=== PATIENT | male | born 1970 ===

== ENCOUNTER 2021-07-26 12:17 | Inpatient (IN) ==
[2021-07-26 13:01] LABS: POC Blood Urea Nitrogen 16 mg/dL (6-20); POC CO2 21 mmol/L (22-30); POC Calcium, Ionized 1.24 mmEq/L (1.16-1.32); POC Chloride 107 mEq/L (96-108); POC Creatinine 1.3 mg/dL (0.6-1.2); POC Glucose, Random 258 mg/dL (70-105); POC Hematocrit 40 % (41-55); POC Potassium 4.2 mEql/L (3.3-5.1); POC Sodium 140 mEq/L (133-145)
[2021-07-26] MEDS ORDERED: METOPROLOL TARTRATE 5 MG/5 ML VIAL IV ONE ×2 (13:02→14:21)
--- NOTE | 2021-07-26 13:07 | Emergency Department Note ---
HPI General Chief complaint: Chest Pain Stated complaint: Chest Pain Time Seen by Provider: 07/26/21 12:42 Source: patient Mode of arrival: ambulatory History of Present Illness HPI Narrative: Patient is a 51-year-old gentleman who arrives emergency department by private vehicle accompanied by his and grandson complaining of shortness of breath. The patient says he has been feeling fatigued and short of breath past week or so. This was gradual in onset has been progressively worsening. He finds that he gets short of breath whenever he lies flat. He denies any associated chest pain vomiting or diaphoresis. Today, his checked his EKG with a home cardiac monitor technician and found his heart rate to be in the 150s so he decided to come to the emergency department for further evaluation. Nothing seems to make his symptoms any better. He has never had anything like this before. He denies any significant recent weight gain or lower extremity edema. Related Data Home Medications Medication Instructions Recorded Confirmed allopurinol 100 mg tablet 100 mg PO QDAY 07/26/21 07/26/21 atorvastatin 40 mg tablet 40 mg PO QDAY 07/26/21 07/26/21 lisinopril 40 mg tablet 40 mg PO QDAY 07/26/21 07/26/21 metformin 1,000 mg tablet 1,000 mg PO BID 07/26/21 07/26/21 Previous Rx's Medication Instructions Recorded apixaban 5 mg tablet (Eliquis) 5 mg PO BID #60 tab 07/28/21 digoxin 125 mcg (0.125 mg) tablet 125 mcg PO QDAY #30 tab 07/28/21 metoprolol tartrate 25 mg tablet 50 mg PO BID #120 tab 07/28/21 furosemide 40 mg tablet (Lasix) 40 mg PO QAM #30 tab 07/29/21 Allergies Allergy/AdvReac Type Severity Reaction Status Date / Time No Known Drug Allergies Allergy Verified 07/26/21 20:02 Review of Systems ROS ROS Narrative: Narrative: All systems ED: reviewed and negative except as stated. Constitutional: Denies fever or chills Cardiovascular: Denies chest pain Respiratory: Reports cough Gastrointestinal: Denies abdominal pain, nausea, vomiting or diarrhea PFSH Narrative Patient History Narrative: Narrative: Medical/Surgical/Family History All Active Problems (Updated 08/01/21 @ 07:39 by Glynn Yan DO) Congestive cardiac failure (Acute) Type 2 diabetes mellitus (Acute) Hypertension (Acute) Social History Smoking Status: Never smoker Alcohol Intake Frequency: 0-2 drinks per day Substance Use: does not use Exam Narrative Narrative: I reviewed the vital signs. Gen -patient is awake and alert and in no acute distress. The patient is well groomed. HEENT -head is atraumatic. There is no conjunctival pallor or scleral icterus. Mucous membranes are moist. CV -S1-S2 tachycardic and irregularly irregular. Peripheral pulses are palpable. There is no JVD. Resp -breathing is nonlabored. Lungs are clear to auscultation bilaterally. There is no cyanosis. GI - Abdomen is soft and nontender to palpation. There is no guarding or rebound tenderness. Derm -skin is warm and dry. There is no visible rash. MSK -present extremities are atraumatic. Psych -patient has appropriate affect. The patient does not appear internally stimulated. Neuro -patient answers questions appropriately with fluent speech. Patient moves all present extremities equally. Course Vital Signs Vital signs: Vital Signs Blood Pressure 139/92 07/26/21 12:23 Pulse Oximetry (%) 99 07/26/21 12:23 Temperature 98.8 F 07/29/21 13:01 Pulse Rate 105 H 07/29/21 13:01 Respiratory Rate 18 07/29/21 13:01 Blood Pressure 120/105 07/29/21 13:01 Pulse Oximetry (%) 99 07/29/21 13:01 [facility] Narrative Medical decision making narrative: personally performed interpreted limited bedside transthoracic echocardiogram. I obtained a parasternal long axis and an apical four-chamber view. There is no pericardial effusion. There is slightly decreased left ventricular ejection fraction. There is no evidence of right ventricular strain. Patient presents with new onset shortness of breath and orthopnea. He is also in rapid atrial fibrillation.Labs remarkable for normal troponin and elevated BNP without significant electrolyte or hematologic derangements. Ultrasound and radiograph are suggestive of decompensated heart failure. Patient was given IV metoprolol with slight improvement in his heart rate. On reassessment his heart rate remains in the 130s at times while at rest. Given this and his need for further treatment I recommend he be admitted and he is agreeable. I discussed the patient's history examination and diagnostic findings with Dr. [facility]. He agrees the patient would not benefit from an inpatient catheterization at this time and thinks he can be managed at our institution. He would be happy to see the patient in follow-up. I discussed the patient's history examination diagnostic findings with Dr. Reyes who accepts admission to his service. Critical care time I provided 35 minutes of critical care time. This was in addition to any separately billable procedures. The patient was given metoprolol and digoxin to control his rapid atrial fibrillation. He was given supplemental oxygen to treat his hypoxia. The patient was closely monitored for response to treatment and stability of vital signs throughout their emergency department stay. Lab Data Lab results reviewed: Yes I reviewed the patient's lab results. Result diagrams: 07/28/21 06:08 07/28/21 06:08 Labs: Lab Results 07/26/21 07/26/21 07/26/21 Range/Units 12:45 12:45 12:45 WBC 6.2 (4.5-11.0) K/mcL RBC 4.50 L (4.63-6.08) M/mcL Hgb 13.5 L (13.7-17.5) g/dL Hct 40.7 (40.1-51.0) % POC Hct 40 L (41-55) % MCV 90.4 (80.0-100.0) fL MCH 30.0 (26.0-34.0) pg MCHC 33.2 (31.0-36.0) g/dL RDW 12.5 (11.5-14.5) % Plt Count 327 (140-440) K/mcL MPV 10.4 (7.4-10.4) fL Neut % (Auto) 62.8 (38.0-78.0) % Lymph % (Auto) 30.6 (15.5-49.0) % [place] % (Auto) 6.0 (1.0-12.0) % Eos % (Auto) 0.3 (0.0-7.0) % Baso % (Auto) 0.3 (0.0-2.0) % Lymph # (Auto) 1.90 (1.50-4.80) K/mcL [place] # (Auto) 0.37 (0.10-0.90) K/mcL Eos # (Auto) 0.02 (0.00-0.70) K/mcL Baso # (Auto) 0.02 (0.00-0.30) K/mcL Absolute Neutrophils 3.90 (1.80-8.00) K/mcL APTT (20.0-37.0) sec POC Sodium 140 (133-145) mEq/L POC Potassium 4.2 (3.3-5.1) mEql/L POC Chloride 107 (96-108) mEq/L POC Total CO2 21 L (22-30) mmol/L POC BUN 16 (6-20) mg/dL POC Creatinine 1.3 H (0.6-1.2) mg/dL POC Glucose 258 H (70-105) mg/dL Hemoglobin A1c (4.0-6.0) % Hgb Estim Average Glucose mg/dL POC WB Ioniz Calcium 1.24 (1.16-1.32) mmEq/L Magnesium (1.6-2.5) mg/dL Total Bilirubin (0.1-1.0) mg/dL Direct Bilirubin (<0.3) mg/dL AST (<40) U/L ALT (<40) U/L Alkaline Phosphatase (39-117) U/L Troponin T < 0.01 (<0.03) ng/mL NT-Pro-B Natriuret Pep 2240.0 H (<125.0) pg/mL Total Protein (5.9-8.4) gm/dL Albumin (3.2-5.2) gm/dL Globulin (2.2-3.7) gm/dL TSH 1.75 (0.27-5.01) uIU/mL 07/26/21 07/26/21 07/26/21 Range/Units 12:45 12:45 12:45 WBC (4.5-11.0) K/mcL RBC (4.63-6.08) M/mcL Hgb (13.7-17.5) g/dL Hct (40.1-51.0) % POC Hct (41-55) % MCV (80.0-100.0) fL MCH (26.0-34.0) pg MCHC (31.0-36.0) g/dL RDW (11.5-14.5) % Plt Count (140-440) K/mcL MPV (7.4-10.4) fL Neut % (Auto) (38.0-78.0) % Lymph % (Auto) (15.5-49.0) % [place] % (Auto) (1.0-12.0) % Eos % (Auto) (0.0-7.0) % Baso % (Auto) (0.0-2.0) % Lymph # (Auto) (1.50-4.80) K/mcL [place] # (Auto) (0.10-0.90) K/mcL Eos # (Auto) (0.00-0.70) K/mcL Baso # (Auto) (0.00-0.30) K/mcL Absolute Neutrophils (1.80-8.00) K/mcL APTT 27.5 (20.0-37.0) sec POC Sodium (133-145) mEq/L POC Potassium (3.3-5.1) mEql/L POC Chloride (96-108) mEq/L POC Total CO2 (22-30) mmol/L POC BUN (6-20) mg/dL POC Creatinine (0.6-1.2) mg/dL POC Glucose (70-105) mg/dL Hemoglobin A1c 8.4 H (4.0-6.0) % Hgb Estim Average Glucose 194 mg/dL POC WB Ioniz Calcium (1.16-1.32) mmEq/L Magnesium 2.0 (1.6-2.5) mg/dL Total Bilirubin 1.4 H (0.1-1.0) mg/dL Direct Bilirubin 0.3 H (<0.3) mg/dL AST 28 (<40) U/L ALT 24 (<40) U/L Alkaline Phosphatase 75 (39-117) U/L Troponin T (<0.03) ng/mL NT-Pro-B Natriuret Pep (<125.0) pg/mL Total Protein 7.9 (5.9-8.4) gm/dL Albumin 4.8 (3.2-5.2) gm/dL Globulin 3.1 (2.2-3.7) gm/dL TSH (0.27-5.01) uIU/mL ED POC Tests ED POC Tests: JOSS - Influenza A Negative JOSS - Influenza B Negative JOSS - SARS Antigen Negative EKG Data EKG #1: EKG attestation: Yes I reviewed and interpreted this EKG. EKG results narrative: EKG performed at 12:14 PM: Atrial fibrillation, rate 153. Normal QRS morphology with subtle electrical alternans in the precordial leads. No ST segment deviation. T waves are diffusely flattened and biphasic in V3 V4 and V5. Normal QRS and QTc duration. No old EKG immediately available for comparison. EKG was interpreted by me. Discharge Plan Patient/Caregiver Discharge Instructions Pt seen by TELEPHONE QUOTATION CLERK/PA only: No Clinical Impression: Congestive cardiac failure Patient Disposition: Xfer As Inpt ([facility]) Condition: Fair Discharge Date/Time: 07/26/21 18:36
[2021-07-26 13:56] LABS: Basophils # (Auto) 0.02 K/mcL (0.00-0.30); Basophils % (Auto) 0.3 % (0.0-2.0); Eosinophils # (Auto) 0.02 K/mcL (0.00-0.70); Eosinophils % (Auto) 0.3 % (0.0-7.0); Hematocrit 40.7 % (40.1-51.0); Hemoglobin 13.5 g/dL (13.7-17.5); Lymphocytes % (Auto) 30.6 % (15.5-49.0); Mean Cell Volume 90.4 fL (80.0-100.0); Mean Corpuscular HGB Conc 33.2 g/dL (31.0-36.0); Mean Platelet Volume 10.4 fL (7.4-10.4); Monocytes # (Auto) 0.37 K/mcL (0.10-0.90); Neutrophils % (Auto) 62.8 % (38.0-78.0); Platelet Count 327 K/mcL (140-440); Red Cell Distribution Width 12.5 % (11.5-14.5); WBC 6.2 K/mcL (4.5-11.0)
--- NOTE | 2021-07-26 14:23 | XRay Report ---
CLINICAL INFORMATION: Dyspnea COMPARISON: None. TECHNIQUE: Portable FINDINGS: The heart size, mediastinum and pulmonary vessels are unremarkable. Mild patchy bibasilar infiltrates have developed. There are no effusions. The bones and soft tissues are within normal limits. IMPRESSION: Mild patchy bibasilar infiltrates. Interpreted and Authenticated by: Gerber Guadalupe 07/26/21
[2021-07-26 14:26] LABS: Thyroid Stimulating Hormone 1.75 uIU/mL (0.27-5.01)
[2021-07-26] MEDS ORDERED: HEPARIN 5,000 UNIT/ML VIAL IV ONE (16:12)
[2021-07-26] MEDS ORDERED: DIGOXIN 500 MCG/2 ML AMPUL IV ONE (16:12)
[2021-07-26] MEDS ORDERED: FUROSEMIDE 40 MG/4 ML VIAL IV ONE (16:12)
[2021-07-26] MEDS ORDERED: HEPARIN SOD,PORK IN 0.45% NACL 25,000 UNIT/500 ML BAG IV SCH (16:15)
[2021-07-26] MEDS ORDERED: HEPARIN SOD,PORK IN 0.45% NACL 25,000 UNIT in PREMIX 1 BAG IV SCH (17:00)
--- NOTE | 2021-07-26 17:14 | Internal Med History&Physical ---
HPI History of Present Illness Patient information: Note initiated : 07/26/21 at 5:05 pm Service Date, if different from initiated Date: [] Patient: Aron Flood a 51 y/o M admitted on for Chest Pain. Chief Complaint: [] History of present illness: Mr. Flood is a 51 year old M Presents to the ED with family for tachycardia and shortness of breath. reported him to be having some labored breathing several weeks ago although patient did not seem to bothered by it however several nights ago patient started having orthopnea when he lay down to go to bed. Happened again last night. His who got an EKG device for her father tested on him it showed his pulse in the 130s to 170s. He also says had a little bit more swelling in his legs over the past couple weeks than usual. Denies chest pain. He has a cough is mostly dry. Patient given Lopressor x2 in the ED as well as Lasix. Currently on room air. Case was discussed with Dr. Garcia (golf club facer at [facility]) who felt patient could be reasonably treated here, no need for inpatient ischemic work-up at this time, and to follow-up with him outpatient. Troponin was unremarkable. BNP significantly elevated. Creatinine 1.3, unknown baseline. TSH within normal limits, mag pending. PCP is in [place]. Review of Systems: Pertinent positives as above. Denies headache/fever/chills/nausea/vomiting/chest or abdominal pain/diarrhea. Remaining 10 point review of system reviewed negative PFSH PFSH All Active Problems (Updated 07/26/21 @ 13:05 by Glynn Yan DO) Type 2 diabetes mellitus (Acute) Hypertension (Acute) Social History alcohol intake frequency: 0-2 drinks per day substance use type: does not use MEDS/ALLERGIES Home Medications and Allergies Home Medications Medication Instructions Recorded Confirmed Type allopurinol 100 mg tablet 100 mg PO QDAY 07/26/21 07/26/21 History amlodipine 10 mg tablet 10 mg PO QDAY 07/26/21 07/26/21 History atorvastatin 40 mg tablet 40 mg PO QDAY 07/26/21 07/26/21 History lisinopril 40 mg tablet 40 mg PO QDAY 07/26/21 07/26/21 History metformin 1,000 mg tablet 1,000 mg PO BID 07/26/21 07/26/21 History Allergies Allergy/AdvReac Type Severity Reaction Status Date / Time No Known Drug Allergies Allergy Unverified 07/26/21 13:19 EXAM Constitutional Vitals: Temp Pulse Resp BP Pulse Ox 98.1 F 32 L 26 H 112/81 97 07/26/21 12:24 07/26/21 16:11 07/26/21 16:32 07/26/21 16:32 07/26/21 16:11 Exam: General: Alert, Awake, No acute Distress Eyes/N/T: EOMI, PERRL, Head/Neck: neck supple, normocephalic atraumatic, JVD CV: reg with irregularity, ?gallop, No murmurs, Pulm: rales b/l, no wheezing Abd: soft, nontender, +BS x4 Ext: no clubbing/cyanosis, 1+ b/l LE Neuro: Alert, no focal deficits, moves all extremities, CN 2-12 grossly intact, symmetrical strength b/l upper/lower, sensations intact b/l upper/lower Skin: warm/dry DATA Data Completed and Pending Labs: Labs from last 24 hours 07/26/21 07/26/21 07/26/21 12:45 12:45 12:45 WBC RBC Hgb Hct POC Hct 40 L MCV MCH MCHC RDW Plt Count MPV Neut % (Auto) Lymph % (Auto) [place] % (Auto) Eos % (Auto) Baso % (Auto) Lymph # (Auto) [place] # (Auto) Eos # (Auto) Baso # (Auto) Absolute Neutrophils APTT 27.5 POC Sodium 140 POC Potassium 4.2 POC Chloride 107 POC Total CO2 21 L POC BUN 16 POC Creatinine 1.3 H POC Glucose 258 H POC WB Ioniz Calcium 1.24 Troponin T < 0.01 NT-Pro-B Natriuret Pep 2240.0 H TSH 1.75 07/26/21 12:45 WBC 6.2 RBC 4.50 L Hgb 13.5 L Hct 40.7 POC Hct MCV 90.4 MCH 30.0 MCHC 33.2 RDW 12.5 Plt Count 327 MPV 10.4 Neut % (Auto) 62.8 Lymph % (Auto) 30.6 [place] % (Auto) 6.0 Eos % (Auto) 0.3 Baso % (Auto) 0.3 Lymph # (Auto) 1.90 [place] # (Auto) 0.37 Eos # (Auto) 0.02 Baso # (Auto) 0.02 Absolute Neutrophils 3.90 APTT POC Sodium POC Potassium POC Chloride POC Total CO2 POC BUN POC Creatinine POC Glucose POC WB Ioniz Calcium Troponin T NT-Pro-B Natriuret Pep TSH A/P Narrative A/P Narrative: A: *New Afib w/RVR(onset likely 1-2 weeks ago): -chadsvasc= 3 *Acute CHF: 2/2 above *DM: A1c *HTN/HLD: On lisinopril/amlodipine *Borderline obesity: *?YAYA vs CKD?(unknown baseline): * P: -rate control -IV lasix -anticoagulation -echo pending -monitor i/o, UOP -monitor renal fxn -check mg -hold ACEI until f/u renal fxn, hold norvasc for edema - -case discussed with Dr. Garcia at [facility], f/u with him outpt -ppx: heparin to likely eliquis in AM Time Spent With Patient Time: Total time spent is greater than 50% in coordination of care (as documented) at patient's floor/unit and/or counseling patient:
[2021-07-26 17:38] LABS: Albumin 4.8 gm/dL (3.2-5.2); Bilirubin,Direct 0.3 mg/dL (<0.3); Bilirubin,Total 1.4 mg/dL (0.1-1.0); Globulin 3.1 gm/dL (2.2-3.7)
[2021-07-26] MEDS ORDERED: POTASSIUM CHLORIDE 20 MEQ TABLET PO PRN ×2 (18:43)
[2021-07-26] MEDS ORDERED: ACETAMINOPHEN 325 MG TABLET PO PRN (18:43)
[2021-07-26] MEDS ORDERED: SENNOSIDES 1 TABLET PO PRN (18:43)
[2021-07-26] MEDS ORDERED: POLYETHYLENE GLYCOL 3350 17 GM PACKET PO PRN (18:43)
[2021-07-26] MEDS ORDERED: IPRATROPIUM/ALBUTEROL 3 ML AMPUL.NEB NEB PRN (18:43)
[2021-07-26] MEDS ORDERED: POTASSIUM CHLORIDE 40 MEQ in DEXTROSE 5% IN WATER 500 ML IV PRN (18:43)
[2021-07-26] MEDS ORDERED: DEXTROSE 31 GM ORAL.SUSP PO PRN (18:43)
[2021-07-26] MEDS ORDERED: FUROSEMIDE 20 MG/2 ML VIAL IV ONE (18:43)
[2021-07-26] MEDS ORDERED: ONDANSETRON 4 MG/2 ML VIAL IV PRN (18:43)
[2021-07-26] MEDS ORDERED: DEXTROSE 50% 50 ML VIAL IV PRN (18:43)
[2021-07-26] MEDS ORDERED: MAGNESIUM SULFATE 2 GM/50 ML BAG IV PRN (18:43)
[2021-07-26] MEDS: METOPROLOL TARTRATE 5 MG/5 ML VIAL IV PRN (19:25)
[2021-07-26 19:27] LABS: Hemoglobin A1C 8.4 % Hgb (4.0-6.0)
[2021-07-26] MEDS: METOPROLOL TARTRATE 25 MG TABLET PO SCH (19:33)
[2021-07-26] MEDS ORDERED: DILTIAZEM 125 MG/25 ML VIAL IV ONE (20:30)
[2021-07-26] MEDS: DILTIAZEM 125 MG in DEXTROSE 5% IN WATER 100 ML IV SCH (20:31)
[2021-07-26] MEDS: 0.9 % SODIUM CHLORIDE 250 ML IV SCH (20:53)
[2021-07-26] MEDS: DOCUSATE SODIUM 100 MG CAPSULE PO SCH (20:55)
[2021-07-26] MEDS: 0.9 % SODIUM CHLORIDE 10 ML SYRINGE IV SCH (21:04)
[2021-07-26] MEDS: INSULIN LISPRO 1 UNIT/0.01 ML UNIT SQ SCH (21:04)
[2021-07-26] MEDS: APIXABAN 5 MG TABLET PO SCH (22:23)
[2021-07-27] MEDS: 0.9 % SODIUM CHLORIDE 10 ML SYRINGE IV SCH ×3 (05:17→20:44)
[2021-07-27 06:44] LABS: Basophils # (Auto) 0.02 K/mcL (0.00-0.30); Basophils % (Auto) 0.3 % (0.0-2.0); Eosinophils # (Auto) 0.04 K/mcL (0.00-0.70); Eosinophils % (Auto) 0.6 % (0.0-7.0); Hematocrit 39.1 % (40.1-51.0); Hemoglobin 12.7 g/dL (13.7-17.5); Lymphocytes # (Auto) 2.09 K/mcL (1.50-4.80); Lymphocytes % (Auto) 30.7 % (15.5-49.0); Mean Cell Volume 91.4 fL (80.0-100.0); Mean Corpuscular HGB Conc 32.5 g/dL (31.0-36.0); Mean Platelet Volume 10.4 fL (7.4-10.4); Monocytes % (Auto) 5.9 % (1.0-12.0); Neutrophils % (Auto) 62.5 % (38.0-78.0); Platelet Count 270 K/mcL (140-440); RBC 4.28 M/mcL (4.63-6.08); Red Cell Distribution Width 12.4 % (11.5-14.5); WBC 6.8 K/mcL (4.5-11.0)
[2021-07-27 07:17] LABS: ALT/SGPT 18 U/L (<40); AST/SGOT 17 U/L (<40); Albumin 3.9 gm/dL (3.2-5.2); Albumin/Globulin Ratio 1.3 (1.0-2.3); Alkaline Phosphatase 68 U/L (39-117); Bilirubin,Direct < 0.2 mg/dL (0-0.3); Bilirubin,Total 0.7 mg/dL (0.1-1.0); Blood Urea Nitrogen 19 mg/dL (6-20); Calcium 8.7 mg/dL (8.6-10.4); Carbon Dioxide 20 mmol/L (22-30); Chloride 105 mmol/L (96-108); Globulin 2.9 gm/dL (2.2-3.7); Glomerular Filtration Rate 58; Glucose 194 mg/dL (70-105); Lactate Dehydrogenase 186 U/L (135-225); Triglycerides 199 mg/dL (<150); Uric Acid 8.2 mg/dL (2.5-8.0)
--- NOTE | 2021-07-27 07:30 | EKG ---
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 Measurements Intervals [place] Rate: 153 P: ME: QRS: 58 QRSD: 92 T: 88 QT: 289 QTc: 462 Interpretive Statements Atrial fibrillation Nonspecific T abnormalities, lateral leads Electronically Signed On 07-27-2021 7:30:23 PST by Gerber Pope M.D. /store/[email or web address]/[id number]
--- NOTE | 2021-07-27 07:57 | Internal Med Progress Note ---
SUBJECTIVE Subjective Patient information: Note initiated : 07/27/21 at 7:51 am Service Date, if different from initiated Date: [] Patient: Aron Flood 51 y/o M admitted on 07/26/21 for Chest Pain. Chief Complaint: [] Interval history: History of present illness: Mr. Flood is a 51 year old M Presents to the ED with family for tachycardia and shortness of breath. reported him to be having some labored breathing several weeks ago although patient did not seem to bothered by it however several nights ago patient started having orthopnea when he lay down to go to bed. Happened again last night. His who got an EKG device for her father tested on him it showed his pulse in the 130s to 170s. He also says had a little bit more swelling in his legs over the past couple weeks than usual. Denies chest pain. He has a cough is mostly dry. Patient given Lopressor x2 in the ED as well as Lasix. Currently on room air. Case was discussed with Dr. Garcia (joss house keeper at [facility]) who felt patient could be reasonably treated here, no need for inpatient ischemic work-up at this time, and to follow-up with him outpatient. Troponin was unremarkable. BNP significantly elevated. Creatinine 1.3, unknown baseline. TSH within normal limits, mag pending. PCP is in [place]. 1/3 Patient states is feeling better today. Breathing better today. Good urine output overnight. staff technologist related depressed ejection fraction but do not have official report yet. Review of Systems: denies headache/fever/chills/nausea/vomiting/chest or abdominal pain/diarrhea. Otherwise see above. Constitutional Vitals: Vital Signs Temp Pulse Resp BP Pulse Ox 97.7 F 64 30 H 116/70 89 L 07/27/21 04:03 07/27/21 04:46 07/27/21 04:46 07/27/21 04:46 07/27/21 04:46 Period Temp Pulse Resp BP Sys/Garcia Pulse Ox Last 24 Hr 97.7 F-98.6 F 31-153 11-38 98-196/53-178 88-100 Intake and Output 07/26/21 07/27/21 07/27/21 21:59 05:59 13:59 Intake Total 613 22 Output Total 3450 Balance -2837 22 Weight 116.346 kg Intake & Output: Intake & Output 07/26/21 07/27/21 07/27/21 21:59 05:59 13:59 Intake Total 613 22 Output Total 3450 Balance -2837 22 Weight 116.346 kg Intake: IV 133 22 Cardizem 125 mg In Dextrose 5% 22 in Water 100 ml @ 5 MG/HR 5 mls /hr IV Q12H [facility] Rx#:[id number] Heparin/0.45%Ns 25,000 Unit In 133 Premix 1 Bag @ 14 UNIT/KG/HR 35 .435 mls/hr IV .[id number] [facility] Rx#: [id number] Oral 480 Output: Void Amount 3450 Other: Urine Appearance Clear Urine Color Pale Exam: General: Alert, Awake, No acute Distress Eyes/N/T: EOMI, , Head/Neck: neck supple, JVD CV: irreg, ?gallop, No murmurs, Pulm: Mild bibasilar rales, no wheezing Abd: soft, nontender, +BS x4 Ext: no clubbing/cyanosis, 1+ b/l LE Neuro: Alert, no focal deficits, moves all extremities, Skin: warm/dry OBJ DATA Labs CBC & Chem 7: 07/27/21 05:36 07/27/21 05:35 Labs: Abnormal Lab Results 07/27/21 07/27/21 07/26/21 05:36 05:35 12:45 RBC 4.28 L Hgb 12.7 L Hct 39.1 L POC Hct Carbon Dioxide 20 L POC Total CO2 Creatinine 1.4 H POC Creatinine Glucose 194 H POC Glucose Hemoglobin A1c 8.4 H Uric Acid 8.2 H Total Bilirubin Direct Bilirubin GGT 76 H NT-Pro-B Natriuret Pep Triglycerides 199 H 07/26/21 07/26/21 07/26/21 12:45 12:45 12:45 RBC 4.50 L Hgb 13.5 L Hct POC Hct 40 L Carbon Dioxide POC Total CO2 21 L Creatinine POC Creatinine 1.3 H Glucose POC Glucose 258 H Hemoglobin A1c Uric Acid Total Bilirubin 1.4 H Direct Bilirubin 0.3 H GGT NT-Pro-B Natriuret Pep 2240.0 H Triglycerides Meds: Medications Acetaminophen (Acetaminophen 325 Mg Tablet) 650 mg PO Q6HP PRN; Protocol PRN Reason: Per Pain Protocol/Fever > 101 Albuterol/Ipratropium (Ipratropium/Albuterol 3 Ml Ampul.Neb) 3 ml NEB Q4HP PRN PRN Reason: Shortness Of Breath Apixaban (Apixaban 5 Mg Tablet) 5 mg PO BID [facility] Last Admin: 07/26/21 22:23 Dose: 5 mg Documented by: Atorvastatin Calcium (Atorvastatin 40 Mg Tablet) 40 mg PO QDAY [facility] Dextrose (Dextrose 50% 50 Ml Vial) 0 ml IV UD PRN PRN Reason: Hypoglycemia Diagnostic Test (Pha) (Accu-Chek 1 Each Strip) 1 each FS [facility] Last Admin: 07/26/21 21:03 Dose: 1 each Documented by: Docusate Sodium (Docusate Sodium 100 Mg Capsule) 100 mg PO BID [facility] Last Admin: 07/26/21 20:55 Dose: Not Given Documented by: Furosemide (Furosemide 40 Mg/4 Ml Vial) 40 mg IV BIDD [facility] Stop: 07/27/21 16:01 Glucose (Dextrose 31 Gm Oral.Susp) 15 gm PO PRN PRN PRN Reason: Hypoglycemia Potassium Chloride 40 meq/ (Dextrose) 520 mls @ 130 mls/hr IV UD PRN PRN Reason: Potassium < 3 Magnesium Sulfate (Magnesium Sulfate) 2 gm in 50 mls @ 50 mls/hr IV UD PRN PRN Reason: Magnesium </= 1.6 Diltiazem HCl 125 mg/ Dextrose 125 mls @ 5 mls/hr IV Q12H [facility]; Protocol Last Titration: 07/27/21 00:15 Dose: 5 mg/hr, 5 mls/hr Documented by: Sodium Chloride (Sodium Chloride 0.9%) 250 mls @ 20 mls/hr IV .[id number] [facility] Last Admin: 07/26/21 20:53 Dose: 20 mls/hr Documented by: Insulin Human Lispro (Insulin Lispro 1 Unit/0.01 Ml Unit) 0 unit SQ [facility]; Protocol Last Admin: 07/26/21 21:04 Dose: Not Given Documented by: Metoprolol Tartrate (Metoprolol Tartrate 5 Mg/5 Ml Vial) 5 mg IV Q2HP PRN PRN Reason: Tachyarrhythmias HR>110 Last Admin: 07/26/21 19:25 Dose: 5 mg Documented by: Metoprolol Tartrate (Metoprolol Tartrate 25 Mg Tablet) 25 mg PO BID [facility] Last Admin: 07/26/21 19:33 Dose: 25 mg Documented by: Ondansetron HCl (Ondansetron 4 Mg/2 Ml Vial) 4 mg IV Q4HP PRN PRN Reason: Nausea And Vomiting Polyethylene Glycol (Polyethylene Glycol 3350 17 Gm Packet) 17 gm PO DAILYP PRN PRN Reason: Constipation Potassium Chloride (Potassium Chloride 20 Meq Tablet) 40 meq PO UD PRN PRN Reason: Potssium is 3-3.5 Potassium Chloride (Potassium Chloride 20 Meq Tablet) 40 meq PO UD PRN PRN Reason: Potassium < 3 Senna (Sennosides 1 Tablet) 2 tab PO DAILYP PRN PRN Reason: Constipation Sodium Chloride (0.9 % Sodium Chloride 10 Ml Syringe) 10 ml IV Q8 [facility] Last Admin: 07/27/21 05:17 Dose: 10 ml Documented by: A/P Narrative A/P Narrative: A: *New Afib/flutter w/RVR(onset likely 1-2 weeks ago): -chadsvasc= 3 *Acute systolic CHF: 2/2 above -good uop *DM: A1c 8.4 *HTN/HLD: On lisinopril/amlodipine *Borderline obesity: *?YAYA with likely CKD III/II(unknown baseline): P: -rate control with PO Lopressor, Digoxin -IV lasix -anticoagulation -echo pending -monitor i/o, UOP -monitor renal fxn -check mg -hold ACEI until f/u renal fxn, hold norvasc for edema -case discussed with Dr. Garcia @[facility] from ED, f/u with him outpt -ppx: eliquis Time Spent With Patient Time: Total time spent is greater than 50% in coordination of care (as documented) at patient's floor/unit and/or counseling patient:
[2021-07-27] MEDS ORDERED: FUROSEMIDE 40 MG/4 ML VIAL IV SCH (08:00)
[2021-07-27] MEDS: DOCUSATE SODIUM 100 MG CAPSULE PO SCH ×2 (08:43→20:28)
[2021-07-27] MEDS: ATORVASTATIN 40 MG TABLET PO SCH (08:43)
[2021-07-27] MEDS: INSULIN LISPRO 1 UNIT/0.01 ML UNIT SQ SCH ×4 (08:43→20:30)
[2021-07-27] MEDS: METOPROLOL TARTRATE 25 MG TABLET PO SCH ×2 (08:43→19:45)
[2021-07-27] MEDS: APIXABAN 5 MG TABLET PO SCH ×2 (08:44→20:31)
[2021-07-27] MEDS: 0.9 % SODIUM CHLORIDE 250 ML IV SCH ×4 (08:47→20:44)
[2021-07-27] MEDS ORDERED: DIGOXIN 500 MCG/2 ML AMPUL IV ONE (09:15)
--- NOTE | 2021-07-27 09:46 | XRay Report ---
HISTORY: Chest pain, follow-up after diuresis FINDINGS: There are generalized alveolar opacities throughout both lungs with the greatest involvement in the lower lobes. Similar finding was present on prior x-ray done on 07/26/21. The heart size is upper limits of normal but magnified by portable technique. No pleural effusion is detected. The mediastinum and isha are normal. IMPRESSION: Stable bilateral alveolar opacities which could be due to edema or widespread pneumonia Interpreted and Authenticated by: Joe Pope 07/27/21
[2021-07-27] MEDS: DILTIAZEM 125 MG in DEXTROSE 5% IN WATER 100 ML IV SCH (10:35)
[2021-07-27] MEDS: METOPROLOL TARTRATE 5 MG/5 ML VIAL IV PRN (13:26)
[2021-07-27] MEDS ORDERED: AMIODARONE 150 MG in DEXTROSE 5% IN WATER 50 ML IV ONE (16:32)
[2021-07-27] MEDS: ESMOLOL 2,500 MG in PREMIX 1 BAG IV SCH ×2 (17:07→19:18)
[2021-07-28] MEDS: METOPROLOL TARTRATE 5 MG/5 ML VIAL IV PRN ×3 (01:15→09:42)
[2021-07-28] MEDS: ESMOLOL 2,500 MG in PREMIX 1 BAG IV SCH ×4 (03:09→22:12)
[2021-07-28] MEDS: 0.9 % SODIUM CHLORIDE 10 ML SYRINGE IV SCH ×3 (05:43→22:17)
[2021-07-28 07:38] LABS: Basophils # (Auto) 0.02 K/mcL (0.00-0.30); Basophils % (Auto) 0.4 % (0.0-2.0); Eosinophils # (Auto) 0.07 K/mcL (0.00-0.70); Eosinophils % (Auto) 1.4 % (0.0-7.0); Hemoglobin 13.2 g/dL (13.7-17.5); Lymphocytes # (Auto) 1.83 K/mcL (1.50-4.80); Lymphocytes % (Auto) 35.9 % (15.5-49.0); Mean Cell Volume 89.7 fL (80.0-100.0); Mean Platelet Volume 10.7 fL (7.4-10.4); Monocytes # (Auto) 0.39 K/mcL (0.10-0.90); Monocytes % (Auto) 7.6 % (1.0-12.0); Neutrophils % (Auto) 54.7 % (38.0-78.0); Platelet Count 277 K/mcL (140-440); RBC 4.46 M/mcL (4.63-6.08); Red Cell Distribution Width 12.1 % (11.5-14.5); WBC 5.1 K/mcL (4.5-11.0)
[2021-07-28] MEDS: INSULIN LISPRO 1 UNIT/0.01 ML UNIT SQ SCH ×4 (07:41→19:23)
--- NOTE | 2021-07-28 07:41 | Internal Med Progress Note ---
SUBJECTIVE Subjective Patient information: Note initiated : 07/28/21 at 7:37 am Service Date, if different from initiated Date: [] Patient: Aorn Flood 51 y/o M admitted on 07/26/21 for Chest Pain. Chief Complaint: [] Interval history: History of present illness: Mr. Flood is a 51 year old M Presents to the ED with family for tachycardia and shortness of breath. reported him to be having some labored breathing several weeks ago although patient did not seem to bothered by it however several nights ago patient started having orthopnea when he lay down to go to bed. Happened again last night. His who got an EKG device for her father tested on him it showed his pulse in the 130s to 170s. He also says had a little bit more swelling in his legs over the past couple weeks than usual. Denies chest pain. He has a cough is mostly dry. Patient given Lopressor x2 in the ED as well as Lasix. Currently on room air. Case was discussed with Dr. Garcia (shingle bolt cutter at [facility]) who felt patient could be reasonably treated here, no need for inpatient ischemic work-up at this time, and to follow-up with him outpatient. Troponin was unremarkable. BNP significantly elevated. Creatinine 1.3, unknown baseline. TSH within normal limits, mag pending. PCP is in [place]. 1/ Patient states is feeling better today. Breathing better today. Good urine output overnight. special procedure technologist related depressed ejection fraction but do not have official report yet. 1/ Patient seems to be doing well. Is states his breathing is much improved. Heart rates been around 100. Good urine output. Review of Systems: denies headache/fever/chills/nausea/vomiting/chest or abdominal pain/diarrhea. Otherwise see above. Constitutional Vitals: Vital Signs Temp Pulse Resp BP Pulse Ox 97.2 F 106 H 29 H 139/91 96 07/28/21 00:01 07/28/21 04:01 07/28/21 04:01 07/28/21 04:01 07/28/21 04:01 Period Temp Pulse Resp BP Sys/Garcia Pulse Ox Last 24 Hr 97.1 F-98.6 F 34-146 12-35 112-175/83-157 92-100 Intake and Output 07/27/21 07/28/21 07/28/21 21:59 05:59 13:59 Intake Total 473 Output Total 500 750 Balance -27 -750 Weight 114.305 kg Intake & Output: Intake & Output 07/27/21 07/28/21 07/28/21 21:59 05:59 13:59 Intake Total 473 Output Total 500 750 Balance -27 -750 Weight 114.305 kg Intake: IV 53 Cordarone 150 mg In Dextrose 5% 53 in Water 50 ml @ 300 mls/hr IV ONCE ONE Rx#:[id number] Oral 420 Output: Void Amount 500 750 Other: Meal Dinner Percent of Meal Consumed 100% Urine Appearance Clear Clear Urine Color Pale Bright Yellow Urine Odor Normal Exam: General: Alert, Awake, No acute Distress Eyes/N/T: EOMI, , Head/Neck: neck supple, CV: irreg, No murmurs, Pulm: Mild bibasilar rales improved, no wheezing Abd: soft, nontender, +BS x4 Ext: no clubbing/cyanosis, mild b/l LE Neuro: Alert, no focal deficits, moves all extremities, Skin: warm/dry OBJ DATA Labs CBC & Chem 7: 07/28/21 06:08 07/28/21 06:08 Labs: Abnormal Lab Results 07/27/21 07/27/21 07/26/21 05:36 05:35 12:45 RBC 4.28 L Hgb 12.7 L Hct 39.1 L POC Hct Carbon Dioxide 20 L POC Total CO2 Creatinine 1.4 H POC Creatinine Glucose 194 H POC Glucose Hemoglobin A1c 8.4 H Uric Acid 8.2 H Total Bilirubin Direct Bilirubin GGT 76 H NT-Pro-B Natriuret Pep Triglycerides 199 H 07/26/21 07/26/21 07/26/21 12:45 12:45 12:45 RBC 4.50 L Hgb 13.5 L Hct POC Hct 40 L Carbon Dioxide POC Total CO2 21 L Creatinine POC Creatinine 1.3 H Glucose POC Glucose 258 H Hemoglobin A1c Uric Acid Total Bilirubin 1.4 H Direct Bilirubin 0.3 H GGT NT-Pro-B Natriuret Pep 2240.0 H Triglycerides Meds: Medications Acetaminophen (Acetaminophen 325 Mg Tablet) 650 mg PO Q6HP PRN; Protocol PRN Reason: Per Pain Protocol/Fever > 101 Albuterol/Ipratropium (Ipratropium/Albuterol 3 Ml Ampul.Neb) 3 ml NEB Q4HP PRN PRN Reason: Shortness Of Breath Apixaban (Apixaban 5 Mg Tablet) 5 mg PO BID [facility] Last Admin: 07/27/21 20:31 Dose: 5 mg Documented by: Atorvastatin Calcium (Atorvastatin 40 Mg Tablet) 40 mg PO QDAY [facility] Last Admin: 07/27/21 08:43 Dose: 40 mg Documented by: Dextrose (Dextrose 50% 50 Ml Vial) 0 ml IV UD PRN PRN Reason: Hypoglycemia Diagnostic Test (Pha) (Accu-Chek 1 Each Strip) 1 each FS [facility] Last Admin: 07/27/21 20:30 Dose: 1 each Documented by: Digoxin (Digoxin 500 Mcg/2 Ml Ampul) 250 mcg IV DAILY@1400 [facility] Docusate Sodium (Docusate Sodium 100 Mg Capsule) 100 mg PO BID [facility] Last Admin: 07/27/21 20:28 Dose: Not Given Documented by: Glucose (Dextrose 31 Gm Oral.Susp) 15 gm PO PRN PRN PRN Reason: Hypoglycemia Potassium Chloride 40 meq/ (Dextrose) 520 mls @ 130 mls/hr IV UD PRN PRN Reason: Potassium < 3 Magnesium Sulfate (Magnesium Sulfate) 2 gm in 50 mls @ 50 mls/hr IV UD PRN PRN Reason: Magnesium </= 1.6 Sodium Chloride (Sodium Chloride 0.9%) 250 mls @ 20 mls/hr IV .[id number] [facility] Last Admin: 07/27/21 20:43 Dose: Not Given Documented by: Esmolol HCl 2,500 mg/ Premix 250 mls @ 34.904 mls/hr IV .[id number] [facility]; Protocol Last Admin: 07/28/21 03:09 Dose: Not Given Documented by: Sodium Chloride (Sodium Chloride 0.9%) 250 mls @ 20 mls/hr IV .[id number] [facility] Last Admin: 07/27/21 20:44 Dose: Not Given Documented by: Insulin Human Lispro (Insulin Lispro 1 Unit/0.01 Ml Unit) 0 unit SQ [facility]; Protocol Last Admin: 07/27/21 20:30 Dose: 8 unit Documented by: Metoprolol Tartrate (Metoprolol Tartrate 5 Mg/5 Ml Vial) 5 mg IV Q2HP PRN PRN Reason: Tachyarrhythmias HR>110 Last Admin: 07/28/21 04:24 Dose: 5 mg Documented by: Metoprolol Tartrate (Metoprolol Tartrate 25 Mg Tablet) 50 mg PO BID [facility] Last Admin: 07/27/21 19:45 Dose: 50 mg Documented by: Ondansetron HCl (Ondansetron 4 Mg/2 Ml Vial) 4 mg IV Q4HP PRN PRN Reason: Nausea And Vomiting Polyethylene Glycol (Polyethylene Glycol 3350 17 Gm Packet) 17 gm PO DAILYP PRN PRN Reason: Constipation Potassium Chloride (Potassium Chloride 20 Meq Tablet) 40 meq PO UD PRN PRN Reason: Potssium is 3-3.5 Potassium Chloride (Potassium Chloride 20 Meq Tablet) 40 meq PO UD PRN PRN Reason: Potassium < 3 Senna (Sennosides 1 Tablet) 2 tab PO DAILYP PRN PRN Reason: Constipation Sodium Chloride (0.9 % Sodium Chloride 10 Ml Syringe) 10 ml IV Q8 [facility] Last Admin: 07/28/21 05:43 Dose: 10 ml Documented by: A/P Narrative A/P Narrative: A: *New Afib/flutter w/RVR(onset likely 1-2 weeks ago): -chadsvasc= 3 *Acute systolic (25%) CHF & RV Heart failure: 2/2 above -case discussed with Dr. Garcia @[facility] from ED -Echo EF 25%, no WMA, Moderately reduced RV systolic fxn, mod MR. -good uop *DM: A1c 8.4 *HTN/HLD: On lisinopril/amlodipine *Borderline obesity: *likely CKD II(unknown baseline): P: -rate control with PO Lopressor, Digoxin -anticoagulation -IV lasix -echo pending -monitor i/o, UOP -monitor renal fxn -hold ACEI until f/u renal fxn, hold norvasc for edema -f/u with cardiology outpt -ppx: eliquis full code Time Spent With Patient Time: Total time spent is greater than 50% in coordination of care (as documented) at patient's floor/unit and/or counseling patient:
[2021-07-28 08:08] LABS: Digoxin 0.4 ng/mL
[2021-07-28 08:15] LABS: ALT/SGPT 17 U/L (<40); AST/SGOT 17 U/L (<40); Albumin 3.7 gm/dL (3.2-5.2); Albumin/Globulin Ratio 1.3 (1.0-2.3); Alkaline Phosphatase 67 U/L (39-117); Bilirubin,Direct 0.2 mg/dL (<0.3); Bilirubin,Total 0.8 mg/dL (0.1-1.0); Blood Urea Nitrogen 15 mg/dL (6-20); Calcium 8.6 mg/dL (8.6-10.4); Carbon Dioxide 19 mmol/L (22-30); Chloride 103 mmol/L (96-108); Globulin 2.9 gm/dL (2.2-3.7); Glomerular Filtration Rate 70; Glucose 214 mg/dL (70-105); Lactate Dehydrogenase 190 U/L (135-225); Phosphorous 4.1 mg/dL (2.5-4.5); Triglycerides 161 mg/dL (<150)
[2021-07-28] MEDS: ATORVASTATIN 40 MG TABLET PO SCH (09:12)
[2021-07-28] MEDS: APIXABAN 5 MG TABLET PO SCH ×2 (09:12→19:16)
[2021-07-28] MEDS: DOCUSATE SODIUM 100 MG CAPSULE PO SCH ×2 (09:12→19:23)
[2021-07-28] MEDS: METOPROLOL TARTRATE 25 MG TABLET PO SCH ×2 (09:13→19:16)
[2021-07-28] MEDS: 0.9 % SODIUM CHLORIDE 250 ML IV SCH ×2 (09:13→23:50)
[2021-07-28] MEDS ORDERED: FUROSEMIDE 40 MG/4 ML VIAL IV ONE (09:19)
[2021-07-28] MEDS ORDERED: HYDROCHLOROTHIAZIDE 12.5 MG CAPSULE PO ONE (09:19)
--- NOTE | 2021-07-28 10:16 | XRay Report ---
HISTORY: Follow-up congestive heart failure FINDINGS: The heart is mildly enlarged and has remained stable since 07/27/21. The congestive heart failure with pulmonary edema has nearly resolved. There is residual low level edema around the left hilum. No pleural effusion is present. There is no infiltrate in the right lung. IMPRESSION: Near-complete resolution of the congestive heart failure Interpreted and Authenticated by: Joe Pope 07/28/21
[2021-07-28] MEDS ORDERED: DIGOXIN 500 MCG/2 ML AMPUL IV SCH (14:00)
--- NOTE | 2021-07-28 17:07 | Discharge Summary ---
Discharge Provider Provider Patient information: Note initiated : 07/28/21 at 5:05 pm Service Date, if different from initiated Date: [] Patient: Aron Flood 51 y/o M admitted on 07/26/21 for Chest Pain. Chief Complaint: [] Date of admission: 07/26/21 18:36 Discharge date: 07/29/21 Primary care physician: Abby Tucker Consults: 07/26/21 Consult to Physician [CONS] Stat Comment: Consulting Provider: Carlos Reyes Reason For Exam: Physician to Consult Discharge Meds Discharge Medications Home Medications allopurinol 100 mg tablet 100 mg PO QDAY 07/26/21 [History Confirmed 07/26/21 Last Taken Unknown] atorvastatin 40 mg tablet 40 mg PO QDAY 07/26/21 [History Confirmed 07/26/21 Last Taken Unknown] lisinopril 40 mg tablet 40 mg PO QDAY 07/26/21 [History Confirmed 07/26/21 Last Taken Unknown] metformin 1,000 mg tablet 1,000 mg PO BID 07/26/21 [History Confirmed 07/26/21 Last Taken Unknown] apixaban 5 mg tablet (Eliquis) 5 mg PO BID #60 tab 07/28/21 [Rx Last Taken Unknown] digoxin 125 mcg (0.125 mg) tablet 125 mcg PO QDAY #30 tab 07/28/21 [Rx Last Taken Unknown] metoprolol tartrate 25 mg tablet 50 mg PO BID #120 tab 07/28/21 [Rx Last Taken Unknown] COURSE Hospital Course Hospital course: History of present illness: Mr. Flood is a 51 year old M Presents to the ED with family for tachycardia and shortness of breath. reported him to be having some labored breathing several weeks ago although patient did not seem to bothered by it however several nights ago patient started having orthopnea when he lay down to go to bed. Happened again last night. His who got an EKG device for her father tested on him it showed his pulse in the 130s to 170s. He also says had a little bit more swelling in his legs over the past couple weeks than usual. Denies chest pain. He has a cough is mostly dry. Patient given Lopressor x2 in the ED as well as Lasix. Currently on room air. Case was discussed with Dr. Garcia (pen tender at [facility]) who felt patient could be reasonably treated here, no need for inpatient ischemic work-up at this time, and to follow-up with him outpatient. Troponin was unremarkable. BNP significantly elevated. Creatinine 1.3, unknown baseline. TSH within normal limits, mag pending. PCP is in [place]. 07/27 Patient states is feeling better today. Breathing better today. Good urine output overnight. land survey technician related depressed ejection fraction but do not have official report yet. 07/28 Patient seems to be doing well. Is states his breathing is much improved. Heart rates been around 100. Good urine output. 07/29 Heart rate maintaining. Will need fine tune adjustment by cardiology. Follow- up closely with cardiology given heart failure and A. fib A: *New Afib/flutter w/RVR(onset likely 1-2 weeks ago): -chadsvasc= 3 *Acute systolic (25%) CHF & RV Heart failure: 2/2 above -case discussed with Dr. Garcia @[facility] from ED -Echo EF 25%, no WMA, Moderately reduced RV systolic fxn, mod MR. *DM: A1c 8.4 *HTN/HLD: On lisinopril/amlodipine *Borderline obesity: *likely CKD II(unknown baseline): Discharge diagnosis: New A. fib flutter and new systolic heart failure with right ventricular dy Secondary discharge diagnosis: Diabetes hypertension borderline obesity CKD Time Spent with Patient Time attestation: Total time spent providing and/or coordinating discharge services: Time spent: Greater than 30 minutes EXAM Constitutional Vitals: Temp Pulse Resp BP Pulse Ox 97.3 F 60 16 127/86 98 07/28/21 16:02 07/28/21 12:11 07/28/21 12:11 07/28/21 16:02 07/28/21 12:11 Discharge Data Data Completed and Pending Labs on day of discharge: Labs from last 24 hours 07/28/21 07/28/21 07/28/21 06:08 06:08 06:08 WBC 5.1 RBC 4.46 L Hgb 13.2 L Hct 40.0 L MCV 89.7 MCH 29.6 MCHC 33.0 RDW 12.1 Plt Count 277 MPV 10.7 H Neut % (Auto) 54.7 Lymph % (Auto) 35.9 Archer % (Auto) 7.6 Eos % (Auto) 1.4 Baso % (Auto) 0.4 Lymph # (Auto) 1.83 Archer # (Auto) 0.39 Eos # (Auto) 0.07 Baso # (Auto) 0.02 Absolute Neutrophils 2.79 Sodium 137 Potassium 3.9 Chloride 103 Carbon Dioxide 19 L Anion Gap 15.0 BUN 15 Creatinine 1.2 GFR Calculation 70 Glucose 214 H Uric Acid 8.0 Calcium 8.6 Phosphorus 4.1 Magnesium 1.9 Total Bilirubin 0.8 Direct Bilirubin 0.2 GGT 65 H AST 17 ALT 17 Alkaline Phosphatase 67 Lactate Dehydrogenase 190 Total Protein 6.6 Albumin 3.7 Globulin 2.9 Albumin/Globulin Ratio 1.3 Triglycerides 161 H Digoxin 0.4 Discharge Plan Patient/Caregiver Discharge Instructions Activity: increase activity as tolerated Diet: Consistent Carbohydrate Activity Restrictions/Additional Instructions: A referral to see a Motor Checker has been sent; they will contact you to schedule an appointment. Prescriptions: New metoprolol tartrate 25 mg Tablet 50 mg PO BID Qty: 120 0RF Eliquis 5 mg Tablet 5 mg PO BID Qty: 60 0RF digoxin 125 mcg (0.125 mg) tablet 125 mcg PO QDAY Qty: 30 0RF Continued allopurinol 100 mg Tablet 100 mg PO QDAY 0RF atorvastatin 40 mg Tablet 40 mg PO QDAY 0RF metformin 1,000 mg Tablet 1,000 mg PO BID 0RF lisinopril 40 mg Tablet 40 mg PO QDAY 0RF Discontinued amlodipine 10 mg Tablet 10 mg PO QDAY 0RF Follow Up Plan Follow up with: Dr. Abby Tucker [Other] - 08/03/21 3:00 pm [facility] [Other] (A referral has been faxed, they will contact you to schedule an appointment after reviewing your hospital stay.) Patient Disposition: Home, Self-Care Prognosis: Undetermined Overall status at discharge: patient is progressing back to baseline Discharge Orders: Discharge Order (Routine); Ordered 07/29/21 Ordered By: Carlos Reyes
[2021-07-28] MEDS: LISINOPRIL 20 MG TABLET PO SCH (17:45)
[2021-07-29] MEDS: METOPROLOL TARTRATE 5 MG/5 ML VIAL IV PRN (00:29)
[2021-07-29] MEDS: 0.9 % SODIUM CHLORIDE 10 ML SYRINGE IV SCH (05:54)
[2021-07-29] MEDS: ESMOLOL 2,500 MG in PREMIX 1 BAG IV SCH ×2 (05:54→10:38)
[2021-07-29] MEDS: DOCUSATE SODIUM 100 MG CAPSULE PO SCH (07:51)
[2021-07-29] MEDS: APIXABAN 5 MG TABLET PO SCH (07:51)
[2021-07-29] MEDS: ATORVASTATIN 40 MG TABLET PO SCH (07:51)
[2021-07-29] MEDS: LISINOPRIL 20 MG TABLET PO SCH (07:51)
[2021-07-29] MEDS: METOPROLOL TARTRATE 25 MG TABLET PO SCH (07:51)
[2021-07-29] MEDS: INSULIN LISPRO 1 UNIT/0.01 ML UNIT SQ SCH ×2 (07:51→11:16)
[2021-07-29 08:15] LABS: Digoxin 0.6 ng/mL
[2021-07-29] MEDS ORDERED: DIGOXIN 125 MCG TABLET PO ONE (10:12)
[2021-07-29] MEDS ORDERED: FUROSEMIDE 40 MG TABLET PO ONE (10:39)
[2021-07-29] MEDS: 0.9 % SODIUM CHLORIDE 250 ML IV SCH (10:39)
== END 2021-07-29 12:50 | disposition home or self-care (01) | DRG 308 ==
LOC: ED 12:17 → ICU 18:36
PROVIDERS: ADMIT Internal Medicine; ATTEND Internal Medicine